=== PATIENT | male | born 1990 | race Caucasian/White ===

== ENCOUNTER 2016-09-04 14:54 | Emergency (ER) | payer BC ==
[~2016-09-04] VITALS: Ht 175.3 cm; Wt 68.5 kg
[~2016-09-04 14:54] MED LIST: BACT2OIN TOP; CLIN1CAP5 PO
[2016-09-04 14:55] VITALS: BP 131/86; PULSE 70; RESP 16; TEMP 98.2; O2SAT 95
--- NOTE | 2016-09-04 17:07 | PD ---
HPI Chief Complaint: Complaint Time Seen by Provider: 17:04 Travel History International Travel<30 days: No Contact w/Intl Traveler<30days: No Traveled to known affect area: No History of Present Illness HPI 25 year old male presents to the emergency department for evaluation of bilateral testicular swelling that started 3 days ago. He states that he has also noticed blood and purulent drainage from his scrotum. Patient reports tenderness to his scrotum as well. Patient states that he does shave this area. He denies any fevers or chills. He denies any penile discharge. He does report having a condom break will he was on vacation approximate 1.5 weeks ago and he is concerned of possible STD. He reports 2 sexual partners in the past 6 months. Patient denies any abdominal pain. No vomiting. He has no chronic medical problems and takes no prescribed medications. [facility] Social History Alcohol Use: No Tobacco Use: No Substance Use: No Allergies-Medications (Allergen,Severity, Reaction): Coded Allergies: Cefzil (Verified Allergy, Unknown, 09/04/16) PT SAID HE WAS TOLD HE WAS ALLERGIC TO THIS MED A CHILD BUT HE IS UNSURE OF HIS RESPONSE TO IT Reported Meds & Prescriptions Reported Meds & Active Scripts Active Doxycycline Hyclate 100 Mg Cap 100 Mg PO BID Review of Systems Except as stated in HPI: all other systems reviewed are Neg Physical Exam Narrative GENERAL: Well-developed well-nourished male patient, ambulatory. Afebrile. SKIN: Warm and dry. HEAD: Normocephalic. EYES: No scleral icterus. No injection or drainage. NECK: Supple, trachea midline. No JVD or lymphadenopathy. CARDIOVASCULAR: Regular rate and rhythm without murmurs, gallops, or rubs. RESPIRATORY: Breath sounds equal bilaterally. No accessory muscle use. GASTROINTESTINAL: Abdomen soft, non-tender, nondistended. MUSCULOSKELETAL: No cyanosis, or edema. BACK: Nontender without obvious deformity. No CVA tenderness. GENITOURINARY: Circumcised. Testes descended bilaterally without evidence of rotation. Patient has multiple pustules noted to the scrotum bilaterally. He also has an area of induration with drainage noted to the right scrotal area. This exam was done with the nurse, Eros, at bedside. No penile discharge. Data Data Last Documented VS Vital Signs Date Time Temp Pulse Resp B/P Pulse Ox O2 Delivery O2 Flow Rate FiO2 09/04/16 19:30 65 18 121/65 100 Room Air 09/04/16 14:55 98.2 Orders Complete Blood Count With Diff (09/04/16 17:07) Basic Metabolic Panel (Bmp) (09/04/16 17:07) Urinalysis - C+S If Indicated (09/04/16 17:07) Wound Culture And Gram Stain (09/04/16 17:07) Gc And Chlamydia Pcr (09/04/16 17:07) Us Testicles W Doppler (09/04/16 17:07) Azithromycin (Zithromax) (09/04/16 20:00) Labs Laboratory Tests Test 09/04/16 09/04/16 17:13 17:22 Urine Color LIGHT-YELLOW Urine Turbidity CLEAR Urine pH 7.0 Urine Specific [place] 1.012 Urine Protein NEG mg/dL Urine Glucose (UA) NEG mg/dL Urine Ketones NEG mg/dL Urine Occult Blood NEG Urine Nitrite NEG Urine Bilirubin NEG Urine Urobilinogen LESS THAN 2.0 MG/DL Urine Leukocyte Esterase NEG Urine RBC 1 /hpf Urine WBC 1 /hpf Urine Mucus FEW /lpf Microscopic Urinalysis Comment CULT NOT INDICATED Chlamydia trachomatis DNA NOT DETECTED (PCR) Neisseria gonorrhoeae DNA NOT DETECTED (PCR) White Blood Count 15.2 TH/MM3 Red Blood Count 4.31 MIL/MM3 Hemoglobin 13.4 GM/DL Hematocrit 39.0 % Mean Corpuscular Volume 90.4 FL Mean Corpuscular Hemoglobin 31.0 PG Mean Corpuscular Hemoglobin 34.3 % Concent Red Cell Distribution Width 12.5 % Platelet Count 250 TH/MM3 Mean Platelet Volume 7.9 FL Neutrophils (%) (Auto) 77.5 % Lymphocytes (%) (Auto) 12.8 % Monocytes (%) (Auto) 8.3 % Eosinophils (%) (Auto) 0.8 % Basophils (%) (Auto) 0.6 % Neutrophils # (Auto) 11.7 TH/MM3 Lymphocytes # (Auto) 1.9 TH/MM3 Monocytes # (Auto) 1.3 TH/MM3 Eosinophils # (Auto) 0.1 TH/MM3 Basophils # (Auto) 0.1 TH/MM3 CBC Comment DIFF FINAL Differential Comment Sodium Level 139 MEQ/L Potassium Level 4.0 MEQ/L Chloride Level 104 MEQ/L Carbon Dioxide Level 28.6 MEQ/L Anion Gap 6 MEQ/L Blood Urea Nitrogen 9 MG/DL Creatinine 0.83 MG/DL Estimat Glomerular Filtration 115 ML/MIN Rate Random Glucose 94 MG/DL Calcium Level 9.2 MG/DL [facility] Medical Decision Making Medical Screen Exam Complete: Yes Emergency Medical Condition: Yes Medical Record Reviewed: Yes Differential Diagnosis Scrotal abscess versus folliculitis versus epididymitis vs. urethritis Narrative Course 25 year old male presents to the emergency department for evaluation of drainage from scrotum as well as pain that started 3 days ago. Physical exam reveals multiple pustules and an area of induration to the right scrotum. Wound culture is taken in triage. CBC, BMP, UA, urine for chlamydia/gonorrhea, US testicles are ordered and pending. Workup is initiated in triage. Once a medical bed becomes available, patient will be transferred and care assumed by that provider. Scripts Doxycycline Hyclate 100 Mg [id number] Mg PO BID #20 CAP Ref 0 Prov:Mt Westfall MD 09/04/16 Zahra Kirkland Sep 04, 2016 17:07
[2016-09-04 17:55] LABS: BLOOD, URINE NEG (NEG); COMMENT (UR) CULT NOT INDICATED; CULTURE IF INDICATED CULT NOT INDICATED; GLUCOSE,URINE NEG (NEG); KETONE, URINE NEG (NEG); MUCUS URINE FEW /lpf (OCC); NITRITE,URINE NEG (NEG); URINE COLOR LIGHT-YELLOW (YELLW/STRAW)
[2016-09-04 18:06] LABS: AUTOMATED NEUTROPHIL # 11.7 TH/MM3 (1.8-7.7); BASOPHIL # 0.1 TH/MM3 (0-0.2); BASOPHIL % 0.6 % (0.0-2.0); EOSINOPHIL # 0.1 TH/MM3 (0-0.4); EOSINOPHIL % 0.8 % (0.0-4.0); HEMO FLAGS DIFF FINAL; LYMPH % 12.8 % (9.0-44.0); LYMPHOCYTE # 1.9 TH/MM3 (1.0-4.8); MEAN CELL VOLUME 90.4 FL (80.0-100.0); MEAN CORPUSCULAR HGB CONC 34.3 % (32.0-36.0); MONO % 8.3 % (0.0-8.0); NEUT % 77.5 % (16.0-70.0); PLATELET COUNT 250 TH/MM3 (150-450); RED BLOOD COUNT 4.31 MIL/MM3 (4.50-5.90); RED CELL DISTRIBUTION WIDTH 12.5 % (11.6-17.2); WHITE BLOOD COUNT 15.2 TH/MM3 (4.0-11.0)
[2016-09-04 18:09] LABS: BICARBONATE 28.6 MEQ/L (21.0-32.0)
--- NOTE | 2016-09-04 18:41 | RADRPT ---
EXAM DATE/TIME: 09/04/2016 18:00 [place] COMPARISON: No previous studies available for comparison. INDICATIONS : Bilateral testicle swelling. MEDICAL HISTORY : Bilateral testicle swelling x2 days. SURGICAL HISTORY : None. ENCOUNTER: Initial ACUITY: 2 days PAIN SCORE: 4/10 LOCATION: Bilateral scrotum. MEASUREMENTS: RIGHT TESTICLE: 3.0 x 3.6 x 2.0cm LEFT TESTICLE: 4.5 x 2.9 x 1.9cm FINDINGS: RIGHT TESTICLE: Homogeneous echotexture without intra or extratesticular mass. Blood flow is symmetric and within no rmal limits. No hydrocele or varicocele. There is a question of slight hypervascularity to the right epididymis. LEFT TESTICLE: Homogeneous echotexture without intra or extratesticular mass. Blood flow is symmetric and within no rmal limits. No hydrocele or varicocele. There are a couple of tiny 3 mm epididymal head cysts. CONCLUSION: Epididymal head cysts on the left and questionable mild epididymitis on the right. Lin Newman MD on September 04, 2016 at 18:36 Board Certified Radiologist. This report was verified electronically.
[2016-09-04 19:30] VITALS: BP 121/65; PULSE 65; RESP 18; O2SAT 100
[2016-09-04 19:44] LABS: CHLAMYDIA PCR NOT DETECTED (NOT DETECT); NEISSERIA PCR NOT DETECTED (NOT DETECT)
[2016-09-04] MEDS ORDERED: DOXY100C PO ×2 (19:57→19:59)
[2016-09-04] MEDS ORDERED: CLIN1CAP5 PO ×2 (19:57→19:59)
[2016-09-04] MEDS ORDERED: AZITHROMYCIN 250 MG TAB PO ONE (20:00)
--- NOTE | 2016-09-04 20:01 | PD ---
Data Data Last Documented VS Vital Signs Date Time Temp Pulse Resp B/P Pulse Ox O2 Delivery O2 Flow Rate FiO2 09/04/16 19:30 65 18 121/65 100 Room Air 09/04/16 14:55 98.2 Orders Complete Blood Count With Diff (09/04/16 17:07) Basic Metabolic Panel (Bmp) (09/04/16 17:07) Urinalysis - C+S If Indicated (09/04/16 17:07) Wound Culture And Gram Stain (09/04/16 17:07) Gc And Chlamydia Pcr (09/04/16 17:07) Us Testicles W Doppler (09/04/16 17:07) Azithromycin (Zithromax) (09/04/16 20:00) Labs Laboratory Tests Test 09/04/16 09/04/16 17:13 17:22 Urine Color LIGHT-YELLOW Urine Turbidity CLEAR Urine pH 7.0 Urine Specific [place] 1.012 Urine Protein NEG mg/dL Urine Glucose (UA) NEG mg/dL Urine Ketones NEG mg/dL Urine Occult Blood NEG Urine Nitrite NEG Urine Bilirubin NEG Urine Urobilinogen LESS THAN 2.0 MG/DL Urine Leukocyte Esterase NEG Urine RBC 1 /hpf Urine WBC 1 /hpf Urine Mucus FEW /lpf Microscopic Urinalysis Comment CULT NOT INDICATED Chlamydia trachomatis DNA NOT DETECTED (PCR) Neisseria gonorrhoeae DNA NOT DETECTED (PCR) White Blood Count 15.2 TH/MM3 Red Blood Count 4.31 MIL/MM3 Hemoglobin 13.4 GM/DL Hematocrit 39.0 % Mean Corpuscular Volume 90.4 FL Mean Corpuscular Hemoglobin 31.0 PG Mean Corpuscular Hemoglobin 34.3 % Concent Red Cell Distribution Width 12.5 % Platelet Count 250 TH/MM3 Mean Platelet Volume 7.9 FL Neutrophils (%) (Auto) 77.5 % Lymphocytes (%) (Auto) 12.8 % Monocytes (%) (Auto) 8.3 % Eosinophils (%) (Auto) 0.8 % Basophils (%) (Auto) 0.6 % Neutrophils # (Auto) 11.7 TH/MM3 Lymphocytes # (Auto) 1.9 TH/MM3 Monocytes # (Auto) 1.3 TH/MM3 Eosinophils # (Auto) 0.1 TH/MM3 Basophils # (Auto) 0.1 TH/MM3 CBC Comment DIFF FINAL Differential Comment Sodium Level 139 MEQ/L Potassium Level 4.0 MEQ/L Chloride Level 104 MEQ/L Carbon Dioxide Level 28.6 MEQ/L Anion Gap 6 MEQ/L Blood Urea Nitrogen 9 MG/DL Creatinine 0.83 MG/DL Estimat Glomerular Filtration 115 ML/MIN Rate Random Glucose 94 MG/DL Calcium Level 9.2 MG/DL [facility] Medical Record Reviewed: Yes Supervised Visit with FRANCISCO: Yes Narrative Course I, Dr. Westfall, have reviewed the advance practice practitioner's documentation and am in agreement unless otherwise dictated below, met with the patient face to face, made the diagnosis, and the medical decision making was done by me. *My assessment and Findings: Pt has epididymitis. He also has some cellulitic changes about the scrotum with no sign of abscess or Nicola's gangrene. Strict hygenic precautions discussed. Strict return precautions discussed including any worsening or even if there is no improvement within 48 hours. Certainly any fever should prompt immediate return to the ER. He has a cephalosporin allergy. He'll be provided with 2 g of azithromycin here for empiric GC/Chlamydia coverage. Doxycycline for the epididymitis and cellulitis will be prescribed. CBC & BMP Diagram 09/04/16 17:22 Scrotum US: epididymal head cysts on L and possible mild epididymitis on R Scripts Doxycycline Hyclate 100 Mg [id number] Mg PO BID #20 CAP Ref 0 Prov:Mt Westfall MD 09/04/16 Mt Westfall MD Sep 04, 2016 20:01
== END 2016-09-04 20:50 | disposition home or self-care (01) ==
LOC: NEPC 14:54
DX: N45.1 Epididymitis (principal); B95.1 Streptococcus, group B, as the cause of diseases classified elsewhere
CPT/HCPCS: 76870; 80048; 81001; 85025; 86403; 87070; 87205; 87491; 87591; 93975

== ENCOUNTER 2016-09-06 16:56 | Inpatient (IN) | payer BC ==
[~2016-09-06] VITALS: Ht 175.3 cm; Wt 70.0 kg
[~2016-09-06 16:56] MED LIST changes: -BACT2OIN TOP; -CLIN1CAP5 PO; +DOXY100C PO
[2016-09-06 16:58] VITALS: BP 149/86; PULSE 67; RESP 16; TEMP 98.2; O2SAT 98
[2016-09-06 20:16] VITALS: BP 137/63; PULSE 59; RESP 16; O2SAT 100
[2016-09-06] MEDS ORDERED: VANCOMYCIN INJ 1,000 MG in SODIUM CHLOR 0.9% 250 ML INJ 250 ML IV ONE (20:30)
[2016-09-06] MEDS ORDERED: PIPERACIL-TAZO 3.375 GM PREMIX 50 ML IV ONE (20:30)
--- NOTE | 2016-09-06 20:38 | PD ---
HPI Chief Complaint: Skin Problem Time Seen by Provider: 20:15 Travel History International Travel<30 days: Yes Contact w/Intl Traveler<30days: [place] Traveled to: [place] Traveled to known affect area: No History of Present Illness HPI 25-year-old male complains of pain and swelling and redness in the groin area. Patient was seen in emergency room 2 days ago was diagnosis with epididymitis and cellulitis. Patient was given Zithromax 2 g by mouth and prescription for doxycycline 100 mg twice a day. Patient states that he has been taking doxycycline as directed. Patient states that has increased in redness swelling at the groin area. Patient denies any fever chills. Patient denies any dysuria or frequency. PFSH Past Medical History Asthma: Yes Pneumonia: Yes Tetanus Vaccination: Unknown Influenza Vaccination: Yes Social History Alcohol Use: No Tobacco Use: No Substance Use: No Allergies-Medications (Allergen,Severity, Reaction): Coded Allergies: Cefzil (Verified Allergy, Unknown, 09/04/16) PT SAID HE WAS TOLD HE WAS ALLERGIC TO THIS MED A CHILD BUT HE IS UNSURE OF HIS RESPONSE TO IT Reported Meds & Prescriptions Reported Meds & Active Scripts Active Doxycycline Hyclate 100 Mg Cap 100 Mg PO BID Review of Systems General / Constitutional: No: Fever Eyes: No: Visual changes HENT: No: Headaches Cardiovascular: No: Chest Pain or Discomfort Respiratory: No: Shortness of Breath Gastrointestinal: No: Abdominal Pain Genitourinary: No: Dysuria Musculoskeletal: No: Pain Skin: No Rash Neurologic: No: Weakness Psychiatric: No: Depression Endocrine: No: Polydipsia Hematologic/Lymphatic: No: Easy Bruising Physical Exam Narrative GENERAL: Well-nourished, well-developed patient. SKIN: Warm and dry. HEAD: Normocephalic. EYES: No scleral icterus. No injection or drainage. NECK: Supple, trachea midline. No JVD or lymphadenopathy. CARDIOVASCULAR: Regular rate and rhythm without murmurs, gallops, or rubs. RESPIRATORY: Breath sounds equal bilaterally. No accessory muscle use. GASTROINTESTINAL: Abdomen soft, non-tender, nondistended. MUSCULOSKELETAL: No cyanosis, or edema. BACK: Nontender without obvious deformity. No CVA tenderness. exam: Patient had multiple pustule lesions with redness swelling tenderness and induration in the pubic area and scrotal area. Data Data Last Documented VS Vital Signs Date Time Temp Pulse Resp B/P Pulse Ox O2 Delivery O2 Flow Rate FiO2 09/06/16 20:16 59 16 137/63 100 Room Air 09/06/16 16:58 98.2 Orders Complete Blood Count With Diff (09/06/16 20:28) Comprehensive Metabolic Panel (09/06/16 20:28) Prothrombin Time / Inr (Pt) (09/06/16 20:28) Act Partial Throm Time (Ptt) (09/06/16 20:28) Blood Culture (09/06/16 20:28) Urinalysis - C+S If Indicated (09/06/16 20:28) Iv Access Insert/Monitor (09/06/16 20:28) Sodium Chlor 0.9% 1000 Ml Inj (Ns 1000 M (09/06/16 20:30) Vancomycin Inj (Vancomycin Inj) (09/06/16 20:30) Piperacil-Tazo 3.375 Gm Premix (Zosyn 3. (09/06/16 20:30) Admit Order (Ed Use Only) (09/06/16 21:13) Labs Laboratory Tests Test 09/06/16 09/06/16 20:40 20:55 White Blood Count 14.4 TH/MM3 Red Blood Count 4.58 MIL/MM3 Hemoglobin 14.4 GM/DL Hematocrit 41.0 % Mean Corpuscular Volume 89.3 FL Mean Corpuscular Hemoglobin 31.3 PG Mean Corpuscular Hemoglobin 35.1 % Concent Red Cell Distribution Width 12.7 % Platelet Count 271 TH/MM3 Mean Platelet Volume 7.5 FL Neutrophils (%) (Auto) 79.8 % Lymphocytes (%) (Auto) 12.8 % Monocytes (%) (Auto) 6.2 % Eosinophils (%) (Auto) 0.7 % Basophils (%) (Auto) 0.5 % Neutrophils # (Auto) 11.5 TH/MM3 Lymphocytes # (Auto) 1.8 TH/MM3 Monocytes # (Auto) 0.9 TH/MM3 Eosinophils # (Auto) 0.1 TH/MM3 Basophils # (Auto) 0.1 TH/MM3 CBC Comment DIFF FINAL Differential Comment Prothrombin Time 10.8 SEC Prothromb Time International 1.0 RATIO Ratio Activated Partial 30.0 SEC Thromboplast Time Sodium Level 138 MEQ/L Potassium Level 3.8 MEQ/L Chloride Level 104 MEQ/L Carbon Dioxide Level 26.2 MEQ/L Anion Gap 8 MEQ/L Blood Urea Nitrogen 11 MG/DL Creatinine 0.82 MG/DL Estimat Glomerular Filtration 116 ML/MIN Rate Random Glucose 88 MG/DL Calcium Level 10.0 MG/DL Total Bilirubin 0.8 MG/DL Aspartate Amino Transf 21 U/L (AST/SGOT) Alanine Aminotransferase 22 U/L (ALT/SGPT) Alkaline Phosphatase 89 U/L Total Protein 8.8 GM/DL Albumin 4.2 GM/DL Urine Color LIGHT-YELLOW Urine Turbidity CLEAR Urine pH 6.5 Urine Specific [place] 1.008 Urine Protein NEG mg/dL Urine Glucose (UA) NEG mg/dL Urine Ketones NEG mg/dL Urine Occult Blood NEG Urine Nitrite NEG Urine Bilirubin NEG Urine Urobilinogen LESS THAN 2.0 MG/DL Urine Leukocyte Esterase NEG Urine RBC LESS THAN 1 /hpf Urine WBC 1 /hpf Urine Mucus FEW /lpf Microscopic Urinalysis Comment CULT NOT INDICATED MDM Medical Decision Making Medical Screen Exam Complete: Yes Emergency Medical Condition: Yes Differential Diagnosis Differential diagnosis including cellulitis, abscess. Narrative Course 25-year-old male with a pustule lesions redness swelling tenderness and induration pubic and scrotum. No evidence of Nicola's gangrene at this point. Vancomycin 1 g IV. Zosyn 3.375 g IV. Normal saline solution 70 cc an hour. Wolfgang Diaz MD Sep 06, 2016 20:38
[2016-09-06] MEDS: SODIUM CHLOR 0.9% 1000 ML INJ 1,000 ML IV SCH (20:50)
[2016-09-06 20:51] LABS: AUTOMATED NEUTROPHIL # 11.5 TH/MM3 (1.8-7.7); BASOPHIL # 0.1 TH/MM3 (0-0.2); BASOPHIL % 0.5 % (0.0-2.0); EOSINOPHIL # 0.1 TH/MM3 (0-0.4); EOSINOPHIL % 0.7 % (0.0-4.0); HEMO FLAGS DIFF FINAL; LYMPH % 12.8 % (9.0-44.0); LYMPHOCYTE # 1.8 TH/MM3 (1.0-4.8); MEAN CELL VOLUME 89.3 FL (80.0-100.0); MEAN CORPUSCULAR HEMOGLOBIN 31.3 PG (27.0-34.0); MEAN CORPUSCULAR HGB CONC 35.1 % (32.0-36.0); MONO % 6.2 % (0.0-8.0); NEUT % 79.8 % (16.0-70.0); PLATELET COUNT 271 TH/MM3 (150-450); RED BLOOD COUNT 4.58 MIL/MM3 (4.50-5.90); RED CELL DISTRIBUTION WIDTH 12.7 % (11.6-17.2); WHITE BLOOD COUNT 14.4 TH/MM3 (4.0-11.0)
[2016-09-06 21:26] LABS: ALKALINE PHOSPHATASE 89 U/L (45-117); ALT (GPT) 22 U/L (12-78); ANION GAP 8 MEQ/L (5-15); AST (GOT) 21 U/L (15-37); BICARBONATE 26.2 MEQ/L (21.0-32.0); BLOOD UREA NITROGEN 11 MG/DL (7-18); CHLORIDE 104 MEQ/L (98-107); GLOMERULAR FILTRATION RATE 116 ML/MIN (>89); POTASSIUM 3.8 MEQ/L (3.5-5.1); PROTHROMBIN TIME - PATIENT 10.8 SEC (9.8-11.6); SODIUM (NA) 138 MEQ/L (136-145); TOTAL BILIRUBIN ADULT 0.8 MG/DL (0.2-1.0)
[2016-09-06 21:27] LABS: BLOOD, URINE NEG (NEG); COMMENT (UR) CULT NOT INDICATED; CULTURE IF INDICATED CULT NOT INDICATED; GLUCOSE,URINE NEG (NEG); KETONE, URINE NEG (NEG); MUCUS URINE FEW /lpf (OCC); NITRITE,URINE NEG (NEG); PH, URINE 6.5 (5.0-8.5); URINE COLOR LIGHT-YELLOW (YELLW/STRAW)
[2016-09-06] MEDS ORDERED: SODIUM CHLORIDE 0.9% FLUSH 10 ML FLUSH IV FLUSH PRN (22:15)
[2016-09-06] MEDS ORDERED: ACETAMINOPHEN 325 MG TAB PO PRN (22:15)
[2016-09-06] MEDS ORDERED: NALOXONE HCL 0.4 MG/ML AMP IV PRN (22:15)
[2016-09-06] MEDS ORDERED: ONDANSETRON HCL 4 MG/2 ML VIAL IVP PRN (22:15)
[2016-09-06] MEDS ORDERED: Vancomycin Consult Pharmacy 1 EA OTHER SCH (23:00)
[2016-09-06] MEDS: ENOXAPARIN SODIUM 40 MG/0.4 ML SYRINGE SQ SCH (23:30)
--- NOTE | 2016-09-07 00:47 | HHI.HP ---
[facility] No Primary Care Physician Admission Diagnosis groin abscess. Groin cellulitis. Diagnoses: (1) Epididymitis, bilateral (2) Cellulitis of scrotum Chief Complaint: blood and pain in testicles Travel History International Travel<30 Days: Yes Contact w/Intl Traveler <30 Da: [place] Traveled to: [place] Traveled to Known Affected Are: No History of Present Illness Mr. Sahni is a 25 year-old male who was seen in the emergency room on 2016 for bilateral testicular swelling along with blood and purulent drainage from his scrotum starting days ago. He was treated for epididymitis and scrotal cellulitis and discharged with doxycycline 100 mg twice a day and was treated with azithromycin 2 g in the ER. He had some wounds on the scrotum that were cultured and showed group B beta strep. He returned to the emergency room 09/06/2016 complaining of pain, swelling, and redness persisting despite treatment. Ultrasound of scrotum 09/04/2016 showed epididymal head cysts on left and possible mild epididymitis on the right. The patient is seen in the ER. He states that he came back to the emergency room 09/06/2016 because of increasing pain and draining blood from lesions in testicular area. Denies fevers, penile discharge, burning/pain with urination, nausea, vomiting, diarrhea though he does say that he had diarrhea following antibiotics given in ER 2 days ago but none since. He states he last shaved his testicles 2 weeks ago. Pain is moderate in intensity and only occurs when he changes position, for example when he sits upright on stretcher. He denies any significant medical history reports that he had previously suffered from asthma but has had no exacerbations since childhood. . Review of Systems Except as stated in HPI: all other systems reviewed are Neg Past Family Social History Past Medical History Asthma Pneumonia . Past Surgical History Right arm ORIF Nose repair - deviated septum . Reported Medications Reported Meds & Active Scripts Active Doxycycline Hyclate 100 Mg Cap 100 Mg PO BID . Allergies: Coded Allergies: Cefzil (Verified Allergy, Unknown, 3/21/17) PT SAID HE WAS TOLD HE WAS ALLERGIC TO THIS MED A CHILD BUT HE IS UNSURE OF HIS RESPONSE TO IT Active Ordered Medications Current Medications Sodium Chloride 1,000 ml @ 70 mls/hr [id number] IV Last administered on 20:50; Start 09/06/16 at 20:30 Vancomycin HCl 1000 mg/Sodium Chloride 250 ml @ 250 mls/hr ONCE ONCE IV Last administered on 09/06/16 22:13; Start 09/06/16 at 20:30; Stop 09/06/16 at 21:29 ; Status DC Piperacillin Sod/ Tazobactam Sod (Zosyn 3.375 Gm Premix) 50 ml @ 100 mls/hr ONCE ONCE IV Last administered on 09/06/16 20:51; Start 09/06/16 at 20:30; Stop 09/06/16 at 20:59; Status DC Sodium Chloride (NS Flush) 2 ml UNSCH PRN IV FLUSH FLUSH AFTER USING IV ACCESS ; Start 09/06/16 at 22:15 Sodium Chloride (NS Flush) 2 ml BID IV FLUSH ; Start 09/07/16 at 09:00 Acetaminophen (Tylenol) 650 mg Q4H PRN PO TEMP > 100.4; Start 09/06/16 at 22:15 Ondansetron HCl (Zofran Inj) 4 mg Q6H PRN IVP NAUSEA OR VOMITING; Start at 22:15 Enoxaparin Sodium (Lovenox Inj) 40 mg Q24H SQ ; Start 09/06/16 at 22:00 Naloxone HCl 0.4 mg 0.4 mg UNSCH PRN IV SEE LABEL COMMENTS; Start 09/06/16 at 22:15 Pharmacy Profile Note 0 ml @ 0 mls/hr UNSCH OTHER ; Start 09/06/16 at 23:00 Piperacillin Sod/ Tazobactam Sod (Zosyn 4.5 Gm Premix) 100 ml @ 200 mls/hr Q6H IV ; Start 09/07/16 at 02:00 . Family History Father with hypertension; age 47 from reaction with alcohol and benzodiazepines No family history of diabetes . Social History Tobacco: Denies Alcohol: Denies Illicit Drugs: Denies . Physical Exam Vital Signs Vital Signs Date Time Temp Pulse Resp B/P Pulse Ox O2 Delivery O2 Flow Rate FiO2 09/06/16 20:16 59 16 137/63 100 Room Air 09/06/16 16:58 98.2 67 16 149/86 98 Physical Exam GENERAL: This is a well-nourished, well-developed patient, in no apparent distress. SKIN: No rashes, ecchymoses or lesions. Cool and dry. HEAD: Atraumatic. Normocephalic. EYES: No scleral icterus. No injection or drainage. ENT: Nose without bleeding, purulent drainage. NECK: Trachea midline. No JVD or lymphadenopathy. CARDIOVASCULAR: Regular rate and rhythm without murmurs, gallops, or rubs. RESPIRATORY: Clear to auscultation. Breath sounds equal bilaterally. No wheezes , rales, or rhonchi. GASTROINTESTINAL: Abdomen soft, non-tender, nondistended. No guarding. GENITOURINARY: testicular lesions noted - largest on the right testicle that is approximately dime sized with purulent exudate noted, no erythema or swelling noted; testicular pain when changes position to sit upright. MUSCULOSKELETAL: Extremities without clubbing, cyanosis, or edema. No calf tenderness. NEUROLOGICAL: Awake and alert. Motor and sensory grossly within normal limits. Normal speech. . . Laboratory Laboratory Tests Test 09/06/16 09/06/16 20:40 20:55 White Blood Count 14.4 Red Blood Count 4.58 Hemoglobin 14.4 Hematocrit 41.0 Mean Corpuscular Volume 89.3 Mean Corpuscular Hemoglobin 31.3 Mean Corpuscular Hemoglobin 35.1 Concent Red Cell Distribution Width 12.7 Platelet Count 271 Mean Platelet Volume 7.5 Neutrophils (%) (Auto) 79.8 Lymphocytes (%) (Auto) 12.8 Monocytes (%) (Auto) 6.2 Eosinophils (%) (Auto) 0.7 Basophils (%) (Auto) 0.5 Neutrophils # (Auto) 11.5 Lymphocytes # (Auto) 1.8 Monocytes # (Auto) 0.9 Eosinophils # (Auto) 0.1 Basophils # (Auto) 0.1 CBC Comment DIFF FINAL Differential Comment Prothrombin Time 10.8 Prothromb Time International 1.0 Ratio Activated Partial 30.0 Thromboplast Time Sodium Level 138 Potassium Level 3.8 Chloride Level 104 Carbon Dioxide Level 26.2 Anion Gap 8 Blood Urea Nitrogen 11 Creatinine 0.82 Estimat Glomerular Filtration 116 Rate Random Glucose 88 Calcium Level 10.0 Total Bilirubin 0.8 Aspartate Amino Transf 21 (AST/SGOT) Alanine Aminotransferase 22 (ALT/SGPT) Alkaline Phosphatase 89 Total Protein 8.8 Albumin 4.2 Urine Color LIGHT-YELLOW Urine Turbidity CLEAR Urine pH 6.5 Urine Specific [place] 1.008 Urine Protein NEG Urine Glucose (UA) NEG Urine Ketones NEG Urine Occult Blood NEG Urine Nitrite NEG Urine Bilirubin NEG Urine Urobilinogen LESS THAN 2.0 Urine Leukocyte Esterase NEG Urine RBC LESS THAN 1 Urine WBC 1 Urine Mucus FEW Microscopic Urinalysis Comment CULT NOT INDICATED Date/Time Procedure Status Source Growth 09/06/16 20:40 Aerobic Blood Culture Received Blood Peripheral Pending 09/06/16 20:40 Anaerobic Blood Culture Received Blood Peripheral Pending Result Diagram: 09/06/16203909/06/162039 Assessment and Plan Problem List: (1) Epididymitis, bilateral ICD Code: N45.1 Status: Acute (2) Cellulitis of scrotum ICD Code: N49.2 Status: Acute Assessment and Plan Mr. Sahni is a 25 year-old male who was seen in the emergency room on 2016 for bilateral testicular swelling along with blood and purulent drainage from his scrotum starting days ago. He was treated for epididymitis and scrotal cellulitis and discharged with doxycycline 100 mg twice a day and was treated with azithromycin 2 g in the ER. He had some wounds on the scrotum that were cultured and showed group B beta strep. Epididymitis/Cellulitis/Failed outpatient therapy - Prior wound culture on 09/04/2016 showed group B beta strep - Given IV Vancomycin and Zosyn in ER - Zosyn 4.5 grams IV q6h - IV vancomycin with pharmacy consultation for assistance with dosing and therapeutic monitoring - IV fluid hydration with Normal saline at 70 cc per hour - Consult urologist - Monitor vital signs every 4 hours - Patient requesting HIV testing - will need counseling DVT prophylaxis - Lovenox 40 mg subq q24h Written by Chela Marrufo, acting as scribe for Dr. Salazar on 09/07/16 at 00:47. .All or portions of this note were transcribed by scribe [Chela Marrufo]. I, Dr. Sam Salazar personally performed the history, physical exam, and medical decision making; and confirmed the accuracy of the information in the transcribed note. Authenticated by Dr. Sam Salazar on 09/07/16 at 00:47. Discussed Condition With ER physician, RN, and patient . Physician Certification 2 Midnight Certification Type: Admission for Inpatient Services Order for Inpatient Services The services are ordered in accordance with Medicare regulations or non- Medicare payer requirements, as applicable. In the case of services not specified as inpatient-only, they are appropriately provided as inpatient services in accordance with the 2-midnight benchmark. Estimated LOS (days): 3 days is the estimated time the patient will need to remain in the hospital, assuming treatment plan goals are met and no additional complications. Post-Hospital Plan: Home Chela Marrufo Sep 07, 2016 00:47 Sam Salazar MD Sep 07, 2016 09:11
[2016-09-07] MEDS: PIPERACIL-TAZO 4.5 GM PREMIX 100 ML IV SCH ×4 (01:59→20:55)
[2016-09-07 02:00] VITALS: BP 142/70; PULSE 62; RESP 16; O2SAT 100
[2016-09-07 06:00] VITALS: BP 135/66; PULSE 59; RESP 16; O2SAT 100
[2016-09-07 07:28] LABS: BASOPHIL # 0.1 TH/MM3 (0-0.2); BASOPHIL % 0.6 % (0.0-2.0); EOSINOPHIL # 0.2 TH/MM3 (0-0.4); EOSINOPHIL % 2.3 % (0.0-4.0); HEMATOCRIT 36.8 % (39.0-51.0); HEMO FLAGS DIFF FINAL; LYMPH % 18.2 % (9.0-44.0); LYMPHOCYTE # 1.8 TH/MM3 (1.0-4.8); MEAN CELL VOLUME 89.3 FL (80.0-100.0); MEAN CORPUSCULAR HEMOGLOBIN 31.4 PG (27.0-34.0); MEAN CORPUSCULAR HGB CONC 35.1 % (32.0-36.0); MONO % 9.3 % (0.0-8.0); NEUT % 69.6 % (16.0-70.0); PLATELET COUNT 242 TH/MM3 (150-450); RED BLOOD COUNT 4.12 MIL/MM3 (4.50-5.90); RED CELL DISTRIBUTION WIDTH 12.5 % (11.6-17.2); WHITE BLOOD COUNT 10.1 TH/MM3 (4.0-11.0)
[2016-09-07 08:01] LABS: POTASSIUM 3.4 MEQ/L (3.5-5.1)
[2016-09-07 08:38] VITALS: BP 101/57; PULSE 65; RESP 16; O2SAT 100
[2016-09-07] MEDS: SODIUM CHLORIDE 0.9% FLUSH 10 ML FLUSH IV FLUSH SCH ×2 (09:00→20:55)
[2016-09-07] MEDS: SODIUM CHLOR 0.9% 1000 ML INJ 1,000 ML IV SCH (10:53)
[2016-09-07 11:12] VITALS: BP 121/66; PULSE 87; RESP 16; O2SAT 99
[2016-09-07] MEDS: VANCOMYCIN INJ 1,250 MG in SODIUM CHLOR 0.9% 250 ML INJ 250 ML IV SCH ×2 (11:12→23:06)
--- NOTE | 2016-09-07 12:58 | HHI.PR ---
Subjective Remarks Follow-up epididymitis/groin cellulitis 09/07/16-patient seen and examined, currently afebrile and groin pain control. Aunt by the bedside Objective Vitals Vital Signs Date Time Temp Pulse Resp B/P Pulse Ox O2 Delivery O2 Flow Rate FiO2 09/07/16 11:12 87 16 121/66 99 Room Air 09/07/16 08:38 65 16 101/57 100 Room Air 09/07/16 06:00 59 16 135/66 100 Room Air 09/07/16 02:00 62 16 142/70 100 Room Air 09/06/16 20:16 59 16 137/63 100 Room Air 09/06/16 16:58 98.2 67 16 149/86 98 Result Diagram: 09/07/1630 09/07/16629 Objective Remarks GENERAL: NAD SKIN: Warm and dry. HEAD: Normocephalic. EYES: No scleral icterus. No injection or drainage. NECK: Supple, trachea midline. No JVD or lymphadenopathy. CARDIOVASCULAR: Regular rate and rhythm without murmurs, gallops, or rubs. RESPIRATORY: Breath sounds equal bilaterally. No accessory muscle use. GASTROINTESTINAL: Abdomen soft, non-tender, nondistended. MUSCULOSKELETAL: No cyanosis, or edema. : BACK: Nontender without obvious deformity. No CVA tenderness. A/P Problem List: (1) Epididymitis, bilateral ICD Code: N45.1 Status: Acute (2) Cellulitis of scrotum ICD Code: N49.2 Status: Acute Assessment and Plan 25-year-old man with Epididymitis/Cellulitis/Failed outpatient therapy - Prior wound culture on 09/04/2016 showed group B beta strep ; chlamydia and GC gonorrhea negative - Given IV Vancomycin and Zosyn in ER - Zosyn 4.5 grams IV q6h - IV vancomycin with pharmacy consultation for assistance with dosing and therapeutic monitoring - Consult urologist - HIV ab pending DVT prophylaxis - Lovenox 40 mg subq q24h Leonel Barros MD Sep 07, 2016 12:58
[2016-09-07] MEDS ORDERED: POTASSIUM CHLORIDE 10 MEQ CONTROLLED RELEASE TAB PO ONE (13:30)
[2016-09-07 16:00] VITALS: BP 125/63; PULSE 82; RESP 16; TEMP 97.6; O2SAT 98
[2016-09-07] MEDS ORDERED: LIDOCAINE HCL 1% 50 ML VIAL ONE (19:13)
[2016-09-07] MEDS ORDERED: LIDOCAINE HCL 1% 50 ML VIAL INFIL ONE (19:30)
--- NOTE | 2016-09-07 20:11 | PD.CONS ---
HPI Service Urology Consult Requested By Reason for Consult Scrotal cellulitis, Scrotal abscess Primary Care Physician No Primary Care Physician Diagnosis: (1) Epididymitis, bilateral ICD Code: N45.1 (2) Cellulitis of scrotum ICD Code: N49.2 History of Present Illness 25yo male with history of epididymal orchitis and scrotal cellulitis admitted for persistent epididymitis now with scrotal abscess. Patient reports he developed testicular pain several days ago for which he was diagnosed with epididymoorchitis. He was treated with doxycycline with no relief in his symptoms.He states drainage began yesterday with small abscesses forming on his scrotum. The pain has also worsened, described as sharp to both testis and scrotal skin. Patient reports he has developed small abscesses in his scrotum, groin, and anal area multiple times in the past. He denies any abscess formation in his armpits. No hematuria, no dysuria. No fevers. Review of Systems ROS Limitations: Clinical Condition Constitutional: DENIES: Fever Endocrine: DENIES: Polyuria Eyes: DENIES: Blurred vision Ears, nose, mouth, throat: DENIES: Hearing loss Respiratory: DENIES: Apneas, Cough Cardiovascular: DENIES: Chest pain Gastrointestinal: DENIES: Abdominal pain Genitourinary: DENIES: Urgency, Hematuria, Dysuria Musculoskeletal: DENIES: Back pain Integumentary: COMPLAINS OF: Rash Hematologic/lymphatic: COMPLAINS OF: Lymphadenopathy Neurologic: DENIES: Headache Psychiatric: DENIES: Anxiety Except as stated in HPI: all other systems reviewed are Neg Past Family Social History Past Medical History Asthma Pneumonia Past Surgical History Right arm ORIF Nose repair - deviated septum Reported Medications Reported Meds & Active Scripts Active Doxycycline Hyclate 100 Mg Cap 100 Mg PO BID Allergies: Coded Allergies: Cefzil (Verified Allergy, Unknown, 09/04/16) PT SAID HE WAS TOLD HE WAS ALLERGIC TO THIS MED A CHILD BUT HE IS UNSURE OF HIS RESPONSE TO IT Active Ordered Medications Current Medications Medications (Trade) Dose Ordered Sig/Nova Route Start Time Stop Time Status Last Admin (NS Flush) 2 ml UNSCH PRN IV FLUSH 09/06/16 22:15 (NS Flush) 2 ml BID IV FLUSH 09/07/16 09:00 09/07/16 09:00 (Tylenol) 650 mg Q4H PRN PO 09/06/16 22:15 09/07/16 02:00 (Zofran Inj) 4 mg Q6H PRN IVP 09/06/16 22:15 (Lovenox Inj) 40 mg Q24H SQ 09/06/16 22:00 Naloxone HCl 0.4 mg 0.4 mg UNSCH PRN IV 09/06/16 22:15 Pharmacy Profile Note 0 ml @ 0 mls/hr UNSCH OTHER 09/06/16 23:00 Piperacillin Sod/ Tazobactam Sod 100 ml @ 200 mls/hr Q6H IV 09/07/16 02:00 09/07/16 13:52 (Vancomycin Inj/ NS 250 ml Inj) 262.5 ml @ 250 mls/hr Q12H IV 09/07/16 11:00 09/07/16 11:12 Miscellaneous Information SPECIFIC LAB TO BE COLLINS... ONCE ONCE XX 09/09/16 10:45 09/09/16 10:46 Family History Father with hypertension; age 47 from reaction with alcohol and benzodiazepines No family history of diabetes . Social History Tobacco: Denies Alcohol: Denies Illicit Drugs: Denies . Physical Exam Vital Signs Date Time Temp Pulse Resp B/P Pulse Ox O2 Delivery O2 Flow Rate FiO2 09/07/16 16:00 97.6 82 16 125/63 98 09/07/16 11:12 87 16 121/66 99 Room Air 09/07/16 08:38 65 16 101/57 100 Room Air 09/07/16 06:00 59 16 135/66 100 Room Air 09/07/16 02:00 62 16 142/70 100 Room Air 09/06/16 20:16 59 16 137/63 100 Room Air Physical Exam GENERAL: This is a well-nourished, well-developed patient, in no apparent distress. SKIN: No rashes, ecchymoses HEAD: Atraumatic. Normocephalic. EYES: Extraocular motions intact. ENT: Nose without bleeding, purulent drainage. Airway patent. NECK: Trachea midline. CARDIOVASCULAR: Normal pulses, extremities well perfused RESPIRATORY: nonlabored respirations. GASTROINTESTINAL: Abdomen soft, non-tender, nondistended. GENITOURINARY: Mild erythema noted throughout scrotum. Several areas of small abscess formation noted. Notably, there is an area on the right lateral scrotum/ groin with fluctuance approx 2cm in length. Another large area in the anterior right hemiscrotum over 4cm in size with abscess formation. The left lateral groin with an elongated abscess palpable. Some drainage noted from these areas. Tender to palpation there is scarring noted on bilateral groins from likely prior abscesses/lesions Circumcised phallus, normal urethral meatus, no lesions. Perineum and around anus are small lesions noted as well MUSCULOSKELETAL: Extremities without clubbing, cyanosis, or edema. NEUROLOGICAL: Awake and alert. Motor and sensory grossly within normal limits. Normal speech. Lab results reviewed: Yes Laboratory Tests Test 09/06/16 09/06/16 09/07/16 09/07/16 20:40 20:55 06:30 10:55 White Blood Count 14.4 10.1 Red Blood Count 4.58 4.12 Hemoglobin 14.4 12.9 Hematocrit 41.0 36.8 Mean Corpuscular Volume 89.3 89.3 Mean Corpuscular Hemoglobin 31.3 31.4 Mean Corpuscular Hemoglobin 35.1 35.1 Concent Red Cell Distribution Width 12.7 12.5 Platelet Count 271 242 Mean Platelet Volume 7.5 7.8 Neutrophils (%) (Auto) 79.8 69.6 Lymphocytes (%) (Auto) 12.8 18.2 Monocytes (%) (Auto) 6.2 9.3 Eosinophils (%) (Auto) 0.7 2.3 Basophils (%) (Auto) 0.5 0.6 Neutrophils # (Auto) 11.5 7.0 Lymphocytes # (Auto) 1.8 1.8 Monocytes # (Auto) 0.9 0.9 Eosinophils # (Auto) 0.1 0.2 Basophils # (Auto) 0.1 0.1 CBC Comment DIFF FINAL DIFF FINAL Differential Comment Prothrombin Time 10.8 Prothromb Time International 1.0 Ratio Activated Partial 30.0 Thromboplast Time Sodium Level 138 140 Potassium Level 3.8 3.4 Chloride Level 104 105 Carbon Dioxide Level 26.2 28.0 Anion Gap 8 7 Blood Urea Nitrogen 11 11 Creatinine 0.82 0.82 Estimat Glomerular Filtration 116 116 Rate Random Glucose 88 95 Calcium Level 10.0 9.0 Total Bilirubin 0.8 Aspartate Amino Transf 21 (AST/SGOT) Alanine Aminotransferase 22 (ALT/SGPT) Alkaline Phosphatase 89 Total Protein 8.8 Albumin 4.2 Urine Color LIGHT-YELLOW Urine Turbidity CLEAR Urine pH 6.5 Urine Specific [place] 1.008 Urine Protein NEG Urine Glucose (UA) NEG Urine Ketones NEG Urine Occult Blood NEG Urine Nitrite NEG Urine Bilirubin NEG Urine Urobilinogen LESS THAN 2.0 Urine Leukocyte Esterase NEG Urine RBC LESS THAN 1 Urine WBC 1 Urine Mucus FEW Microscopic Urinalysis Comment CULT NOT INDICATED HIV (1&2) Antibody NEGATIVE Date/Time Procedure Status Source Growth 09/06/16 20:40 Aerobic Blood Culture - Preliminary Resulted Blood Peripheral NO GROWTH IN 1 DAY 09/06/16 20:40 Anaerobic Blood Culture - Preliminary Resulted Blood Peripheral NO GROWTH IN 1 DAY Result Diagram: 09/07/16 0630 09/07/16 0630 Personally reviewed images: Yes Imaging Scrotal U/S from prior hospital visit reviewed in detail, no intratesticular abscess or lesions noted. Assessment and Plan Problem List: (1) Cellulitis of scrotum ICD Code: N49.2 Status: Acute (2) Epididymitis, bilateral ICD Code: N45.1 Status: Acute Assessment and Plan 25yo male with multiple scrotal and groin abscesses. Clinical picture is consistent with Hidradenitis Suppurativa. -I&D of the multiple scrotal abscess was completed after proper local anesthetic with 1% lidocaine with packing material placed into the wounds -Drainage revealed minimal purulence, however majority was bloody output -Physical exam findings and I&D are consistent with Hidradenitis, and do not require any further I%D of these lesions -Recommend ID consult for further management and recommendations -Continue antibiotics as he may have a component of epididymitis as well -Continue daily wound dressing changes with 1/4in plain packing material to each groin/scrotal wound with 4x4 gauze and tape on top. -Continue dressing changes daily into discharge with home health care until wound closes -Follow-up with Urology in clinic in 2-3 weeks -Please call with questions Maverick Cervantes MD Sep 07, 2016 20:11
[2016-09-07 20:30] VITALS: BP 131/73; PULSE 79; RESP 17; TEMP 98; O2SAT 97
[2016-09-07] MEDS: ENOXAPARIN SODIUM 40 MG/0.4 ML SYRINGE SQ SCH (23:06)
[2016-09-08] VITALS: BP 128/64; PULSE 80; RESP 18; TEMP 98.3; O2SAT 96
[2016-09-08] MEDS: PIPERACIL-TAZO 4.5 GM PREMIX 100 ML IV SCH ×4 (01:54→20:00)
[2016-09-08 08:00] VITALS: BP 98/56; PULSE 67; RESP 17; TEMP 97.1; O2SAT 97
[2016-09-08] MEDS: SODIUM CHLORIDE 0.9% FLUSH 10 ML FLUSH IV FLUSH SCH ×2 (08:29→20:01)
--- NOTE | 2016-09-08 09:36 | HHI.PR ---
Subjective Remarks Follow-up epididymitis/groin cellulitis 09/07/16-patient seen and examined, currently afebrile and groin pain control. Aunt by the bedside 09/08/16-patient seen and examined, he was seen by urology yesterday. Stable this AM; HIV negative and test results discussed with patient. Objective Vitals Vital Signs Date Time Temp Pulse Resp B/P Pulse Ox O2 Delivery O2 Flow Rate FiO2 09/08/16 08:00 97.1 67 17 98/56 97 09/08/16 00:00 98.3 80 18 128/64 96 09/07/16 20:30 98.0 79 17 131/73 97 09/07/16 16:00 97.6 82 16 125/63 98 09/07/16 11:12 87 16 121/66 99 Room Air I/O 09/07/16 09/07/16 09/07/16 09/08/16 09/08/16 09/08/16 07:00 15:00 23:00 07:00 15:00 23:00 Intake Total 480 ml 480 ml Balance 480 ml 480 ml Intake Oral 480 ml 480 ml # Voids 1 2 Result Diagram: 09/07/16 0630 09/07/16 0630 Objective Remarks GENERAL: NAD SKIN: Warm and dry. HEAD: Normocephalic. EYES: No scleral icterus. No injection or drainage. NECK: Supple, trachea midline. No JVD or lymphadenopathy. CARDIOVASCULAR: Regular rate and rhythm without murmurs, gallops, or rubs. RESPIRATORY: Breath sounds equal bilaterally. No accessory muscle use. GASTROINTESTINAL: Abdomen soft, non-tender, nondistended. MUSCULOSKELETAL: No cyanosis, or edema. : Groin abscesses BACK: Nontender without obvious deformity. No CVA tenderness. A/P Problem List: (1) Epididymitis, bilateral ICD Code: N45.1 Status: Acute (2) Cellulitis of scrotum ICD Code: N49.2 Status: Acute Assessment and Plan 25-year-old man with Epididymitis/Cellulitis/Failed outpatient therapy Hidradenitis Suppurativa. - Prior wound culture on 09/04/2016 showed group B beta strep ; chlamydia and GC gonorrhea negative - Zosyn 4.5 grams IV q6h and IV vancomycin - Appreciate input from urologist and Continue daily wound dressing changes with 1/4in plain packing material to each groin/scrotal wound with 4x4 gauze and tape on top. - HIV ab negative DVT prophylaxis - Lovenox 40 mg subq q24h Leonel Barros MD Sep 08, 2016 09:36
[2016-09-08 12:00] VITALS: BP 127/69; PULSE 60; RESP 17; TEMP 96.7; O2SAT 98
[2016-09-08] MEDS: VANCOMYCIN INJ 1,250 MG in SODIUM CHLOR 0.9% 250 ML INJ 250 ML IV SCH ×2 (12:39→22:26)
[2016-09-08 16:00] VITALS: BP 119/73; PULSE 61; RESP 17; TEMP 98.1; O2SAT 100
[2016-09-08] MEDS ORDERED: MORPHINE SULFATE 4 MG/ML INJ IV PRN (17:00)
[2016-09-08] MEDS ORDERED: ACETAMINOPHEN 325 MG TAB PO PRN (17:15)
[2016-09-08] MEDS: ACETAMINOPHEN/HYDROcodone 325 MG/5 MG TAB PO PRN (17:40)
[2016-09-08 20:00] VITALS: BP 134/83; PULSE 66; RESP 17; TEMP 96.6; O2SAT 99
[2016-09-08] MEDS: ENOXAPARIN SODIUM 40 MG/0.4 ML SYRINGE SQ SCH (20:01)
[2016-09-09] VITALS: BP 128/79; PULSE 76; RESP 17; TEMP 96.6; O2SAT 98
[2016-09-09] MEDS: PIPERACIL-TAZO 4.5 GM PREMIX 100 ML IV SCH ×2 (03:01→08:03)
[2016-09-09 08:00] VITALS: BP 138/76; PULSE 62; RESP 18; TEMP 96.6; O2SAT 97
[2016-09-09] MEDS: SODIUM CHLORIDE 0.9% FLUSH 10 ML FLUSH IV FLUSH SCH (08:03)
--- NOTE | 2016-09-09 10:32 | HHI.PR ---
Subjective Remarks Follow-up epididymitis/groin cellulitis 09/07/16-patient seen and examined, currently afebrile and groin pain control. Aunt by the bedside 09/08/16-patient seen and examined, he was seen by urology yesterday. Stable this AM; HIV negative and test results discussed with patient. 09/09/16-patient seen and examined, he was concerned about a possible abscess to his buttock-Left; afebrile. Reports some improvement of groin abscess Objective Vitals Vital Signs Date Time Temp Pulse Resp B/P Pulse Ox O2 Delivery O2 Flow Rate FiO2 09/09/16 08:00 96.6 62 18 138/76 97 09/09/16 00:00 96.6 76 17 128/79 98 09/08/16 20:00 96.6 66 17 134/83 99 09/08/16 16:00 98.1 61 17 119/73 100 09/08/16 12:00 96.7 60 17 127/69 98 I/O 09/08/16 09/08/16 09/08/16 09/09/16 09/09/16 09/09/16 07:00 15:00 23:00 07:00 15:00 23:00 Intake Total 480 ml 275 ml 679 ml 340 ml Balance 480 ml 275 ml 679 ml 340 ml Intake Oral 480 ml 120 ml 240 ml 240 ml IV Total 155 ml 439 ml 100 ml # Voids 2 2 1 2 # Bowel Movements 0 Result Diagram: 09/07/16 0630 09/07/16 0630 Objective Remarks GENERAL: NAD SKIN: Warm and dry. HEAD: Normocephalic. EYES: No scleral icterus. No injection or drainage. NECK: Supple, trachea midline. No JVD or lymphadenopathy. CARDIOVASCULAR: Regular rate and rhythm without murmurs, gallops, or rubs. RESPIRATORY: Breath sounds equal bilaterally. No accessory muscle use. GASTROINTESTINAL: Abdomen soft, non-tender, nondistended. MUSCULOSKELETAL: No cyanosis, or edema. : Groin abscesses BACK: Nontender without obvious deformity. No CVA tenderness. A/P Problem List: (1) Epididymitis, bilateral ICD Code: N45.1 Status: Acute (2) Cellulitis of scrotum ICD Code: N49.2 Status: Acute (3) Hidradenitis suppurativa ICD Code: L73.2 Status: Acute Assessment and Plan 25-year-old man with Epididymitis/Cellulitis/Failed outpatient therapy Hidradenitis Suppurativa. - Prior wound culture on 09/04/2016 showed group B beta strep however repeat culture so far NTD ; chlamydia and GC gonorrhea negative - Zosyn 4.5 grams IV q6h and IV vancomycin - Appreciate input from urologist and Continue daily wound dressing changes with 1/4in plain packing material to each groin/scrotal wound with 4x4 gauze and tape on top. - HIV ab negative DVT prophylaxis - Lovenox 40 mg subq q24h I spent 35 minutes [id number] with the patient or on the jensen discussing the patient's disposition, prognosis, and plan of care with the patient. Over half the time spent was devoted to counseling the patient regarding STDs, HIV and his current diagnosis of hidradenitis suppurativa Leonel Barros MD Sep 09, 2016 10:32
[2016-09-09] MEDS ORDERED: CLIN1CAP6 PO (10:35)
--- NOTE | 2016-09-09 10:39 | HHI.DS ---
Discharge Summary Admission Date Sep 06, 2016 at 21:14 Discharge Date: Sep 09, 2016 Admitting Diagnosis groin abscess. Groin cellulitis. (1) Epididymitis, bilateral ICD Code: N45.1 (2) Cellulitis of scrotum ICD Code: N49.2 (3) Hidradenitis suppurativa ICD Code: L73.2 Procedures Incision and drainage in ED Brief History - From Admission Mr. Sahni is a 25 year-old male who was seen in the emergency room on 2016 for bilateral testicular swelling along with blood and purulent drainage from his scrotum starting days ago. He was treated for epididymitis and scrotal cellulitis and discharged with doxycycline 100 mg twice a day and was treated with azithromycin 2 g in the ER. He had some wounds on the scrotum that were cultured and showed group B beta strep. He returned to the emergency room 09/06/2016 complaining of pain, swelling, and redness persisting despite treatment. Ultrasound of scrotum 09/04/2016 showed epididymal head cysts on left and possible mild epididymitis on the right. The patient is seen in the ER. He states that he came back to the emergency room 09/06/2016 because of increasing pain and draining blood from lesions in testicular area. Denies fevers, penile discharge, burning/pain with urination, nausea, vomiting, diarrhea though he does say that he had diarrhea following antibiotics given in ER 2 days ago but none since. He states he last shaved his testicles 2 weeks ago. Pain is moderate in intensity and only occurs when he changes position, for example when he sits upright on stretcher. He denies any significant medical history reports that he had previously suffered from asthma but has had no exacerbations since childhood. . CBC/BMP: 09/07/16 0630 09/07/16 0630 Significant Findings Laboratory Tests Test 09/06/16 09/06/16 09/07/16 20:40 20:55 06:30 White Blood Count 14.4 TH/MM3 (4.0-11.0) Neutrophils (%) (Auto) 79.8 % (16.0-70.0) Neutrophils # (Auto) 11.5 TH/MM3 (1.8-7.7) Total Protein 8.8 GM/DL (6.4-8.2) Urine Mucus FEW /lpf (OCC) Red Blood Count 4.12 MIL/MM3 (4.50-5.90) Hemoglobin 12.9 GM/DL (13.0-17.0) Hematocrit 36.8 % (39.0-51.0) Monocytes (%) (Auto) 9.3 % (0.0-8.0) Potassium Level 3.4 MEQ/L (3.5-5.1) PE at Discharge GENERAL: NAD SKIN: Warm and dry. HEAD: Normocephalic. EYES: No scleral icterus. No injection or drainage. NECK: Supple, trachea midline. No JVD or lymphadenopathy. CARDIOVASCULAR: Regular rate and rhythm without murmurs, gallops, or rubs. RESPIRATORY: Breath sounds equal bilaterally. No accessory muscle use. GASTROINTESTINAL: Abdomen soft, non-tender, nondistended. MUSCULOSKELETAL: No cyanosis, or edema. : Groin abscesses BACK: Nontender without obvious deformity. No CVA tenderness. Hospital Course Patient initially admitted and diagnosed with epididymitis/cellulitis underwent I&D of groin abscesses in ED and start a on IV antibiotics with monitoring of wound culture which remained negative prior to discharge. Urology was consulted and patient was diagnosed with hydradenitis suppurativa. HIV test was negative and patient was advised to have repeat HIV testing in 4 weeks. Dressing change were applied to the groin abscesses. Vitals were monitored and DVT per proximal provided Pt Condition on Discharge: Stable Discharge Disposition: Discharge Home Discharge Time: > 30 minutes Discharge Instructions DIET: Follow Instructions for: As Tolerated, No Restrictions Activities you can perform: Regular-No Restrictions Other Activity Instructions: daily wound dressing changes with 1/4in plain packing material to each groin/scrotal wound with 4x4 gauze and tape on top. Follow up Referrals: PCP Follow-up - 1 Week Urology New Medications: Clindamycin (Clindamycin) 300 Mg Cap 300 MG PO BID Infection #14 Ref 0 CAP Ibuprofen (Ibuprofen) 600 Mg Tab 600 MG PO Q6H PRN Pain/Inflammation #30 Ref 0 TAB Discontinued Medications: Doxycycline Hyclate (Doxycycline Hyclate) 100 Mg Cap 100 MG PO BID Infection #20 Ref 0 CAP Additional Information daily wound dressing changes with 1/4in plain packing material to each groin/ scrotal wound with 4x4 gauze and tape on top. Repeat HIV test in 2-4 weeks Leonel Barros MD Sep 09, 2016 10:39
[2016-09-09] MEDS ORDERED: PHARMACY ORDERED LAB XX ONE (10:45)
[2016-09-09] MEDS ORDERED: IBUP-232 PO (11:29)
[2016-09-09] MEDS: ACETAMINOPHEN/HYDROcodone 325 MG/5 MG TAB PO PRN (13:34)
== END 2016-09-09 17:09 | disposition home or self-care (01) | DRG 728 ==
LOC: NEPE 16:56 → NEDA 21:14 → NEDH 09-07 01:57 → N07B 09-07 14:42
PROVIDERS: ADMIT Hospitalist; ATTEND Hospitalist
PROC: 0H9AXZZ Drainage of Inguinal Skin, External Approach (ICD-10-PCS; principal; 2016-09-07)
DX: N45.1 Epididymitis (principal); B95.1 Streptococcus, group B, as the cause of diseases classified elsewhere; N49.2 Inflammatory disorders of scrotum; L73.2 Hidradenitis suppurativa
CPT/HCPCS: 76870; 80048; 80053; 81001; 85025; 85610; 85730; 86403; 86703; 87040; 87070; 87205; 87491; 87591; 93975; 99284; J1650; J2543; J3370; J7030; J7050